=== PATIENT | male | born 1940 | race Caucasian/White ===

== ENCOUNTER → 2016-09-20 | Outpatient (CLI) | payer MEDICARE, BC ==
[2015-07-18 15:00] VITALS: BP 152/76
[~2016-09-20] MED LIST: ALLO300T PO; ALPR0.25 PO; AMLO2.5T PO; AMLO5TAB2 PO; ASPI-482 PO; ASPI325T4 PO; DILT180C2 PO; GARL10002 PO; LIPITOR80 MG PO; LISI2.5T PO; METO25TA4 PO; NITR1PAT3 TD; OMEG500C PO; PANT40TA5 PO; TAMS0.4C2 PO; VALS1TAB14 PO; WARF5TAB7 PO
--- NOTE | 2016-09-20 15:01 | CARD ---
APPROVED REPORT EXAM: Two-dimensional and M-mode echocardiogram with Doppler and color Doppler. Other Information Quality : Average Rhythm : NSR INDICATION Cardiac Disease: CAD 2D DIMENSIONS RVDd3.0 (2.9-3.5cm)Left Atrium(2D)4.7 (1.6-4.0cm) IVSd1.2 (0.7-1.1cm)Aortic Root(2D)3.0 (2.0-3.7cm) LVDd4.7 (3.9-5.9cm)LVOT Diameter2.0 (1.8-2.4cm) PWd1.2 (0.7-1.1cm)LVDs2.8 (2.5-4.0cm) FS (%) 41.2 %SV74.9 ml LVEF(%)72.0 (>50%) Aortic Valve AoV Peak Benjamin.133.8cm/sAoV VTI26.6cm AO Peak GR.7.2mmHgLVOT Peak Benjamin.107.1cm/s LVOT VTI 23.63cmAO Mean GR.4mmHg DAVID (VMAX)2.91ii3FXV (VTI)2.78cm2 AI P 1/2 Fvau442dq Mitral Valve MV E Hnuxnych36.7cm/sMV DECEL BOOG484bh MV A Banpfffl15.3cm/sMV E Mean Gr.1mmHg MV QQA99woP/A Ratio1.0 MV A Dhudbaol469rmOFY (PHT)3.03cm2 TDI E/Lateral E'7.8E/Medial E'7.2 Pulmonary Valve PV Peak Sbtlnrvu89.2cm/sPV Peak Grad.4mmHg RVOT VTI20.2cm Tricuspid Valve TR P. Tfojfiyd336yn/sRAP TQRCWHKJ9fwXt TR Peak Gr.66hhXtDVJS01ffCf Pulmonary Vein S1 Ujtfcigs85.5cm/sD2 Zllvonev46.0cm/s LEFT VENTRICLE The left ventricle is normal size. There is borderline concentric left ventricular hypertrophy. Left ventricle systolic function is normal. The Ejection Fraction is 65-70%. There is normal LV segmental wall motion. The left ventricular diastolic function and filling is normal for age. RIGHT VENTRICLE The right ventricle is normal size. The right ventricular systolic function is normal. ATRIA The left atrium is mildly dilated. The right atrium size is normal. The interatrial septum is intact with no evidence for an atrial septal defect or patent foramen ovale as noted on 2-D or Doppler imagi ng. AORTIC VALVE The aortic valve is mildly sclerotic. The aortic valve is trileaflet. Doppler and Color Flow revealed trace to mild aortic regurgitation. There is no significant aortic valvular stenosis. MITRAL VALVE The mitral valve leaflets are mildly calcified and thickened. There is no mitral valve stenosis. Dopp ler and Color Flow revealed mild mitral regurgitation. TRICUSPID VALVE The tricuspid valve is not well visualized. Doppler and Color Flow revealed mild tricuspid regurgitat ion. The PA pressure was estimated at 25 mmHg. There is no tricuspid valve stenosis. PULMONIC VALVE The pulmonic valve is not well visualized. Doppler and Color Flow revealed no pulmonic valvular regur gitation. There is no pulmonic valvular stenosis. GREAT VESSELS The aortic root is normal in size. Normal pulmonary venous flow (Doppler). The IVC is normal in size and collapses >50% with inspiration. PERICARDIAL EFFUSION There is no evidence of significant pericardial effusion. Critical Notification Critical Value: No <Conclusion> Left ventricle systolic function is normal. The Ejection Fraction is 65-70%. There is normal LV segmental wall motion. The left atrium is mildly dilated. Trace to mild aortic regurgitation. Mild mitral regurgitation. Mild tricuspid regurgitation. The PA pressure was estimated at 25 mmHg. There is no evidence of significant pericardial effusion.
== END | disposition home or self-care (01) ==
LOC: ECHO 12:51
PROVIDERS: ATTEND Internal Medicine Cardiovascular Disease
DX: I25.10 Atherosclerotic heart disease of native coronary artery without angina pectoris (principal); I51.7 Cardiomegaly; I35.1 Nonrheumatic aortic (valve) insufficiency; I34.0 Nonrheumatic mitral (valve) insufficiency
CPT/HCPCS: 93306

== ENCOUNTER → 2018-01-16 | Outpatient (CLI) | payer MEDICARE, BC | END | disposition home or self-care (01) | LOC: ECHO 10:10 | DX: I08.1 Rheumatic disorders of both mitral and tricuspid valves (principal); I25.10 Atherosclerotic heart disease of native coronary artery without angina pectoris; R60.0 Localized edema; I10 Essential (primary) hypertension; E78.5 Hyperlipidemia, unspecified | CPT/HCPCS: 93306; 93970 ==

== ENCOUNTER 2018-08-21 08:48 | Observation (INO) | payer MEDICARE, BC ==
[~2018-08-21] VITALS: Ht 165.1 cm; Wt 104.3 kg
[~2018-08-21 08:48] MED LIST changes: -AMLO2.5T PO; +AMLO2.5T5 PO; +AMLO5TAB10 PO; -AMLO5TAB2 PO; -ASPI325T4 PO; +ASPI325T8 PO; +WARF-31 PO; -WARF5TAB7 PO
[2018-08-21] MEDS ORDERED: ASPIRIN 325 MG TABLET PO ONE (09:00)
[2018-08-21] MEDS ORDERED: NITROGLYCERIN SUBLINGUAL 0.4 MG BOTTLE OF 25. SL PRN ×2 (09:00→11:30)
--- NOTE | 2018-08-21 09:15 | PHYS DOC ---
Past Medical History Past Medical History: [place] Past Surgical History: Cholecystectomy, Other Additional Past Surgical Histo: Cardiac stent x 2, Cardiac cath x 13 Alcohol Use: None Drug Use: None Adult General Chief Complaint Chief Complaint: CHEST PAIN HPI HPI Patient is a 78 year old male who presented to ER today for evaluation of substernal chest pain. Patient described the pain as heaviness. Patient has had this pain off and on since May of last year. Patient said he had some congestion and nonproductive cough 2 weeks ago but he is getting better. He denies any fever. Patient woke up this morning, having the pressure and heaviness in his chest again SO HE came in here for evaluation. Review of Systems Review of Systems Constitutional: Denies fever or chills [] Eyes: Denies change in visual acuity, redness, or eye pain [] HENT: Denies nasal congestion or sore throat [] Respiratory: Denies cough or shortness of breath [] Cardiovascular: No additional information not addressed in HPI [] GI: Denies abdominal pain, nausea, vomiting, bloody stools or diarrhea [] : Denies dysuria or hematuria [] Musculoskeletal: Denies back pain or joint pain [] Integument: Denies rash or skin lesions [] Neurologic: Denies headache, focal weakness or sensory changes [] Endocrine: Denies polyuria or polydipsia [] All other systems were reviewed and found to be within normal limits, except as documented in this note. Current Medications Current Medications Current Medications Medications (Trade) Dose Ordered Sig/Luz Elena Start Time Stop Time Status Last Admin Dose Admin Aspirin (Eunice Aspirin) 325 mg 1X ONCE 08/21/18 09:00 08/21/18 09:01 DC 08/21/18 09:31 325 MG Nitroglycerin (Nitrostat) 0.4 mg PRN Q5MIN PRN 08/21/18 11:30 08/22/18 11:29 UNV Ondansetron HCl (Zofran) 4 mg PRN Q8HRS PRN 08/21/18 11:30 08/22/18 11:29 UNV Allergies Allergies Allergies Coded Allergies Type Severity Reaction Last Updated Verified metronidazole Allergy Severe Palpitations 11/20/13 Yes Penicillins Allergy Intermediate Rash 11/20/13 Yes Physical Exam Physical Exam Constitutional: Well developed, well nourished, no acute distress, non-toxic appearance. [] HENT: Normocephalic, atraumatic, bilateral external ears normal, oropharynx moist, no oral exudates, nose normal. [] Eyes: PERRLA, EOMI, conjunctiva normal, no discharge. [] Neck: Normal range of motion, no tenderness, supple, no stridor. [] Cardiovascular:Heart rate regular rhythm, no murmur [] Lungs & Thorax: Bilateral breath sounds clear to auscultation [] Abdomen: Bowel sounds normal, soft, no tenderness, no masses, no pulsatile masses. [] Skin: Warm, dry, no erythema, no rash. [] Back: No tenderness, no CVA tenderness. [] Extremities: No tenderness, no cyanosis, no clubbing, ROM intact. Bilateral lower extremities pitting edema, 4 plus. Neurologic: Alert and oriented X 3, normal motor function, normal sensory function, no focal deficits noted. [] Psychologic: Affect normal, judgement normal, mood normal. [] Current Patient Data Vital Signs Vital Signs Date Time Temp Pulse Resp B/P (MAP) Pulse Ox O2 Delivery O2 Flow Rate FiO2 08/21/18 10:49 56 15 124/59 (80) 97 Room Air 08/21/18 08:52 98.1 98.1 Lab Values Laboratory Tests Test 08/21/18 08:15 08/21/18 10:20 White Blood Count 6.0 x10^3/uL (4.0-11.0) Red Blood Count 4.30 x10^6/uL (4.30-5.70) Hemoglobin 11.2 g/dL (13.0-17.5) L Hematocrit 34.5 % (39.0-53.0) L Mean Corpuscular Volume 80 fL (79-100) Mean Corpuscular Hemoglobin 26 pg (25-35) Mean Corpuscular Hemoglobin Concent 33 g/dL (31-37) Red Cell Distribution Width 17.1 % (11.5-14.5) H Platelet Count 245 x10^3/uL (140-400) Neutrophils (%) (Auto) 68 % (31-73) Lymphocytes (%) (Auto) 18 % (24-48) L Monocytes (%) (Auto) 10 % (0-9) H Eosinophils (%) (Auto) 3 % (0-3) Basophils (%) (Auto) 1 % (0-3) Neutrophils # (Auto) 4.1 x10^3uL (1.8-7.7) Lymphocytes # (Auto) 1.1 x10^3/uL (1.0-4.8) Monocytes # (Auto) 0.6 x10^3/uL (0.0-1.1) Eosinophils # (Auto) 0.2 x10^3/uL (0.0-0.7) Basophils # (Auto) 0.0 x10^3/uL (0.0-0.2) Prothrombin Time 12.3 SEC (11.7-14.0) Prothrombin Time INR 0.9 (0.8-1.1) PTT 25 SEC (24-38) Sodium Level 144 mmol/L (136-145) Potassium Level 4.2 mmol/L (3.5-5.1) Chloride Level 105 mmol/L (98-107) Carbon Dioxide Level 28 mmol/L (21-32) Anion Gap 11 (6-14) Blood Urea Nitrogen 16 mg/dL (8-26) Creatinine 0.9 mg/dL (0.7-1.3) Estimated GFR (Cockcroft-Gault) 81.6 BUN/Creatinine Ratio 18 (6-20) Glucose Level 101 mg/dL (70-99) H Calcium Level 9.3 mg/dL (8.5-10.1) Magnesium Level 2.2 mg/dL (1.8-2.4) Total Bilirubin 0.5 mg/dL (0.2-1.0) Aspartate Amino Transferase (AST) 19 U/L (15-37) Alanine Aminotransferase (ALT) 23 U/L (16-63) Alkaline Phosphatase 89 U/L (46-116) Creatine Kinase 61 U/L (39-308) Creatine Kinase MB (Mass) 1.5 ng/mL (0.0-3.6) Creatine Kinase MB Relative Index % (0-4) Troponin I Quantitative < 0.017 ng/mL (0.000-0.055) RH-Azv-U-Type Natriuretic Peptide 236 pg/mL (0-449) Total Protein 6.6 g/dL (6.4-8.2) Albumin 3.3 g/dL (3.4-5.0) L Albumin/Globulin Ratio 1.0 (1.0-1.7) Laboratory Tests 08/21/18 08:15 Laboratory Tests 08/21/18 10:20 EKG EKG EKG was read by this physician at 0855, rate of 64 BPM, sinus rhythm, incomplete RBBB, NO STEMI. Radiology/Procedures Radiology/Procedures [][facility] [address] [place] [address] IMAGING REPORT Signed PATIENT: SHOLA MERAZ ACCOUNT: [id number] : 1940 LOCATION: ER AGE: 78 SEX: M EXAM STATUS: PRE ER ORD. PHYSICIAN: ARMANI SAEED DO REASON: CHEST PAIN PROCEDURE: PORTABLE CHEST 1V EXAM: AP View of the chest DATE: 08/21/2018 8:50 AM INDICATION: CHEST PAIN COMPARISON: 09/06/2015 FINDINGS: The heart is not enlarged. Aortic calcifications are seen. No focal parenchymal airspace opacity. Mild emphysematous changes are seen. No pleural effusion or pneumothorax. IMPRESSION: 1. No radiographic evidence for acute cardiopulmonary process. Electronically signed by: Tonny Rowell MD (08/21/2018 9:24 AM) [id number] DICTATED and SIGNED BY: TONNY ROWELL MD DATE: 08/21/18919 Course & Med Decision Making Course & Med Decision Making Pertinent Labs and Imaging studies reviewed. (See chart for details) [] Dragon Disclaimer Dragon Disclaimer This electronic medical record was generated, in whole or in part, using a voice recognition dictation system. Departure Departure Impression: Primary Impression: Chest pain Disposition: ADMITTED INPATIENT Admitting Physician: Murray Goldsmith Condition: IMPROVED Referrals: BETZY ARMENDARIZ MD (PCP) ARMANI SAEED DO Aug 21, 2018 09:14
--- NOTE | 2018-08-21 09:27 | RAD ---
EXAM: AP View of the chest DATE: 08/21/2018 8:50 AM INDICATION: CHEST PAIN COMPARISON: 09/06/2015 FINDINGS: The heart is not enlarged. Aortic calcifications are seen. No focal parenchymal airspace opacity. Mild emphysematous changes are seen. No pleural effusion or pneumothorax. IMPRESSION: 1. No radiographic evidence for acute cardiopulmonary process. Electronically signed by: Tonny Ernst MD (08/21/2018 9:24 AM) [id number]
[2018-08-21 09:31] LABS: BASO % 1 % (0-3); EOS # 0.2 x10^3/uL (0.0-0.7); EOS % 3 % (0-3); HEMATOCRIT 34.5 % (39.0-53.0); HEMOGLOBIN 11.2 g/dL (13.0-17.5); LYMPH # 1.1 x10^3/uL (1.0-4.8); LYMPH % 18 % (24-48); MEAN CORPUSCULAR HEMOGLOBIN 26 pg (25-35); MEAN CORPUSCULAR HGB CONC 33 g/dL (31-37); MEAN CORPUSCULAR VOLUME 80 fL (79-100); MONO # 0.6 x10^3/uL (0.0-1.1); MONO % 10 % (0-9); NEUT # 4.1 x10^3uL (1.8-7.7); NEUT % 68 % (31-73); PLATELET COUNT 245 x10^3/uL (140-400); RED CELL DISTRIBUTION WIDTH 17.1 % (11.5-14.5)
[2018-08-21 09:46] LABS: PROTHROMBIN TIME PATIENT 12.3 SEC (11.7-14.0)
[2018-08-21] MEDS ORDERED: PANT20TA2 PO (10:05)
[2018-08-21] MEDS ORDERED: OMEG1CAP27 PO (10:05)
[2018-08-21] MEDS ORDERED: AMLO5TAB4 PO (10:05)
[2018-08-21] MEDS ORDERED: NITR0.4T22 SL (10:05)
[2018-08-21] MEDS ORDERED: ASPI-630 PO (10:05)
[2018-08-21 10:50] LABS: ALBUMIN 3.3 g/dL (3.4-5.0); CALCIUM 9.3 mg/dL (8.5-10.1); CREATININE 0.9 mg/dL (0.7-1.3); GFR 81.6; MAGNESIUM 2.2 mg/dL (1.8-2.4); POTASSIUM 4.2 mmol/L (3.5-5.1); TOTAL BILIRUBIN 0.5 mg/dL (0.2-1.0); TOTAL PROTEIN 6.6 g/dL (6.4-8.2)
--- NOTE | 2018-08-21 11:00 | EKG ---
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
[2018-08-21 11:01] LABS: CREATINE KINASE 61 U/L (39-308)
[2018-08-21] MEDS ORDERED: ONDANSETRON PF 4 MG/2 ML VIAL. IV PRN (11:30)
--- NOTE | 2018-08-21 12:45 | HP ---
ADMIT DATE: 08/21/2018 CHIEF COMPLAINT: Chest pain. HISTORY OF PRESENT ILLNESS: The patient is a pleasant 78-year-old male who presented to the ER with chest pain, rates it 12/25. He has associated anxiety, it has been occurring for several days. He tried taking some home meds, he described it as agonizing. I discussed the case with ER physician. We are going to admit the patient and consult Cardiology. PAST MEDICAL HISTORY: Myocardial infarction; cholecystectomy; cardiac stents x 2; cardiac catheterization, supposedly x 13 ? ALLERGIES: PENICILLIN and METRONIDAZOLE. FAMILY HISTORY: Coronary artery disease. SOCIAL HISTORY: He does not drink, smoke or take drugs. He is retired. MEDICATIONS: Reviewed, please refer to the MRAD. He is on 11 including atorvastatin, omega-3 fish oil, nitroglycerin, metoprolol, Norvasc, Cardizem, Diovan, aspirin, Protonix, allopurinol. REVIEW OF SYSTEMS: GENERAL: No history of weight change, weakness or fevers. SKIN: No bruising, hair changes or rashes. EYES: No blurred, double or loss of vision. NOSE AND THROAT: No history of nosebleeds, hoarseness or sore throat. HEART: He complains of chest pain. LUNGS: Denies cough, hemoptysis, wheezing or shortness of breath. GASTROINTESTINAL: Denies changes in appetite, nausea, vomiting, diarrhea or constipation. GENITOURINARY: No history of frequency, urgency, hesitancy or nocturia. NEUROLOGIC: Denies history of numbness, tingling, tremor or weakness. PSYCHIATRIC: No history of panic, anxiety or depression. ENDOCRINE: No history of heat or cold intolerance, polyuria or polydipsia. EXTREMITIES: Denies muscle weakness, joint pain, pain on walking or stiffness. PHYSICAL EXAMINATION: VITAL SIGNS: Temperature 98, pulse 80, respirations 18, blood pressure 102/51. GENERAL: He is alert, cooperative. HEART: Normal S1, S2. LUNGS: Clear. ABDOMEN: Soft. EXTREMITIES: No edema. SKIN: No rash. ENDOCRINE: No thyromegaly. LYMPHATICS: No cervical nodes. HEMATOPOIETIC: No bruising. PSYCHIATRIC: He is stable. LABORATORY DATA: Hematology is normal other than hemoglobin of 11.2. Electrolytes are normal. Troponin 0. INR is 0.9. EKG shows sinus rhythm. Chest x-ray is negative. ASSESSMENT AND PLAN: Chest pain, rule out recurrent coronary artery disease. The patient has been admitted. We will check serial enzymes, serial EKGs. Consult Cardiology, cardiac monitoring, home meds, full code. PT, OT, DVT prophylaxis, p.r.n. morphine. PROGNOSIS: Guarded. CESARL Joe SHARMA DO DR: AARON/dallin JOB#: [id number] / [id number]
--- NOTE | 2018-08-21 14:30 | NUR ---
Patient admitted to 211. Patient is not reporting any pain at this time. Sitting comfortably in the recliner. Patient fed and has call light within reach. Patient given walker and encouraged to call when in need of assistance. Will continue to monitor.
[2018-08-21 14:53] LABS: CHOLESTEROL/HDL RATIO 3.1
[2018-08-21 14:55] VITALS: BP 134/59
--- NOTE | 2018-08-21 15:00 | PDOC2 ---
LESLEE CERON COMBINER 08/21/18 1500: CARDIAC CONSULT DATE OF CONSULT Date of Consult DATE: 08/21/18 TIME: 14:42 REASON FOR CONSULT Reason for Consult: Chest pain REFERRING PHYSICIAN Referring Physician: Jorge SOURCE Source: Chart review, Patient HISTORY OF PRESENT ILLNESS HISTORY OF PRESENT ILLNESS This is a pleasant 78 yo male admitted for complains of chest pain. He has been having midchest tightness since May and only lasting about <5 minutes. This occurrs with rest and with activity. He actually uses stairs to go to the basement and no FREEMAN nor CP and this was about 2 days ago. In the last week he has had 4 episodes of chest tightness but resolves <5 minutes. He has not been using his PRN NTG. This morning he was having mid chest tightness and this time it lasted about an hour and occurred while at rest. Also with brief episode of SOA and nausea. He also has been having intermittent but very brief jaw tightness. In addition he feels palpitations sometimes and dizziness. Not associated with vertigo. Denies recent injury but did fall few weeks ago due to ice and no trauma. He has been compliant with his medications and there has been no changes with his meds. For the most part his HR and BP have been good in his written records. He does have GERD but he continuous to take protonix. PAST MEDICAL HISTORY Past Medical History Cardiovascular: CAD, HTN, Hyperlipidemia CENTRAL NERVOUS SYSTEM: Other (No pertinent history) GI: GERD, GI bleed, Peptic Ulcer disease Heme/Onc: No pertinent hx Hepatobiliary: No pertinent hx Psych: Depression Musculoskeletal: Osteoarthritis Rheumatologic: No pertinent hx, Gout Infectious disease: No pertinent hx ENT: No pertinent hx Renal/: Benign prostatic enlarg. Endocrine: No pertinent hx Dermatology: No pertinent hx PAST SURGICAL HISTORY Past Surgical History TURP; cardiac cath with stent 2009 and 2010 with total of 13 heart catheterizations, RTHA FAMILY HISTORY Family History Stroke (father:) SOCIAL HISTORY Social History Smoke: No (quit>13 years ago; 30 pk year) ALCOHOL: rare Drugs: None Lives: with Family Domestic Violence: Neg CURRENT MEDICATIONS CURRENT MEDICATIONS Current Medications Medications (Trade) Dose Ordered Sig/Luz Elena Route PRN Reason Start Time Stop Time Status Last Admin Dose Admin Aspirin (Eunice Aspirin) 325 mg 1X ONCE PO 08/21/18 09:00 08/21/18 09:01 DC 08/21/18 09:31 Nitroglycerin (Nitrostat) 0.4 mg PRN Q5MIN PRN SL CP RATING > 1/10 08/21/18 09:00 08/21/18 11:37 DC 08/21/18 09:32 ALLERGIES ALLERGIES: Coded Allergies: metronidazole (Verified Allergy, Severe, Palpitations, 11/20/13) TACHYCARDIA Penicillins (Verified Allergy, Intermediate, Rash, 11/20/13) ROS Review of System 14 point ROS evaluated with pertinent positives noted per HPI PHYSICAL EXAM General: Alert, Oriented X3, Cooperative, No acute distress HEENT: Atraumatic, Mucous membr. moist/pink Lungs: Clear to auscultation, Normal air movement Heart: Regular rate (SR), Normal S1, Normal S2, Other (2/6 systolic murmur to BLESSING border) Abdomen: Soft, No tenderness Extremities: No cyanosis, No edema Skin: No breakdown, No significant lesion Neuro: Normal speech, Sensation intact Psych/Mental Status: Mental status NL, Mood NL MUSCULOSKELETAL: Osteoarthritic changes both hands VITALS VITALS Vital Signs Date Time Temp Pulse Resp B/P (MAP) Pulse Ox O2 Delivery O2 Flow Rate FiO2 08/21/18 13:28 62 20 145/67 (93) 98 Room Air 08/21/18 08:52 98.1 98.1 LABS Lab: Laboratory Tests Test 08/21/18 08:15 08/21/18 10:20 White Blood Count 6.0 x10^3/uL (4.0-11.0) Red Blood Count 4.30 x10^6/uL (4.30-5.70) Hemoglobin 11.2 g/dL (13.0-17.5) Hematocrit 34.5 % (39.0-53.0) Mean Corpuscular Volume 80 fL (79-100) Mean Corpuscular Hemoglobin 26 pg (25-35) Mean Corpuscular Hemoglobin Concent 33 g/dL (31-37) Red Cell Distribution Width 17.1 % (11.5-14.5) Platelet Count 245 x10^3/uL (140-400) Neutrophils (%) (Auto) 68 % (31-73) Lymphocytes (%) (Auto) 18 % (24-48) Monocytes (%) (Auto) 10 % (0-9) Eosinophils (%) (Auto) 3 % (0-3) Basophils (%) (Auto) 1 % (0-3) Neutrophils # (Auto) 4.1 x10^3uL (1.8-7.7) Lymphocytes # (Auto) 1.1 x10^3/uL (1.0-4.8) Monocytes # (Auto) 0.6 x10^3/uL (0.0-1.1) Eosinophils # (Auto) 0.2 x10^3/uL (0.0-0.7) Basophils # (Auto) 0.0 x10^3/uL (0.0-0.2) Prothrombin Time 12.3 SEC (11.7-14.0) Prothromb Time International Ratio 0.9 (0.8-1.1) Activated Partial Thromboplast Time 25 SEC (24-38) Sodium Level 144 mmol/L (136-145) Potassium Level 4.2 mmol/L (3.5-5.1) Chloride Level 105 mmol/L (98-107) Carbon Dioxide Level 28 mmol/L (21-32) Anion Gap 11 (6-14) Blood Urea Nitrogen 16 mg/dL (8-26) Creatinine 0.9 mg/dL (0.7-1.3) Estimated GFR (Cockcroft-Gault) 81.6 BUN/Creatinine Ratio 18 (6-20) Glucose Level 101 mg/dL (70-99) Calcium Level 9.3 mg/dL (8.5-10.1) Magnesium Level 2.2 mg/dL (1.8-2.4) Total Bilirubin 0.5 mg/dL (0.2-1.0) Aspartate Amino Transf (AST/SGOT) 19 U/L (15-37) Alanine Aminotransferase (ALT/SGPT) 23 U/L (16-63) Alkaline Phosphatase 89 U/L (46-116) Creatine Kinase 61 U/L (39-308) Creatine Kinase MB (Mass) 1.5 ng/mL (0.0-3.6) Creatine Kinase MB Relative Index % (0-4) Troponin I Quantitative < 0.017 ng/mL (0.000-0.055) LA-Shv-R-Type Natriuretic Peptide 236 pg/mL (0-449) Total Protein 6.6 g/dL (6.4-8.2) Albumin 3.3 g/dL (3.4-5.0) Albumin/Globulin Ratio 1.0 (1.0-1.7) ECHOCARDIOGRAM ECHOCARDIOGRAM <Conclusion> The left ventricular systolic function is normal. The Ejection Fraction is 65-70%. There is normal LV segmental wall motion. Trace aortic regurgitation. Mild mitral regurgitation. Mild tricuspid regurgitation. There is no evidence of significant pericardial effusion. DATE: 01/16/18 1208 STRESS TEST STRESS TEST Conclusion 1. Mildly abnormal baseline EKG but no EKG evidence of stressed induced ischemia. 2. Nuclear scanning shows no reversible ischemia or infarct. 3. Normal left ventricular systolic function with ejection fraction of greater than 70%. 4. Low risk Lexiscan nuclear stress test. DATE: 03/14/17 1501 ASSESSMENT/PLAN ASSESSMENT/PLAN 1. Chest pain: UA features 2. CAD: stents in the past. 2015 LHC and 2017 MPI as noted above. 3. HTN: controlled 4. HLP 5. Palpitations/dizziness Recommendations 1. Limited TTE, lipids. 2. Ischemic w/u 3. Continue with home regimen. ASA, lipitor. 4. Will consider for outpt event monitor DANIELA ELLIOTT MD 08/21/18 1703: CARDIAC CONSULT ASSESSMENT/PLAN ASSESSMENT/PLAN Patient seen and examined. Agree with WATERPROOF BAG CUTTING MACHINE OPERATOR's assessment and plan. CP with mixed features. [place] ruled out Agree with 2D echo to rule out wall motion abnormalities We will consider ischemic workup with stress test and event monitor to evaluate palpitations as outpatient Thank you for your consultation LESLEE CERON APRN Aug 21, 2018 15:00 DANIELA ELLIOTT MD Aug 21, 2018 17:03
[2018-08-21 19:00] VITALS: BP 141/58
[2018-08-21] MEDS: METOPROLOL TART IMMED RELEASE 25 MG TABLET. PO SCH (20:16)
[2018-08-21] MEDS ORDERED: ATORVASTATIN CALCIUM 40 MG TABLET. PO SCH (21:00)
[2018-08-21 22:09] VITALS: BP 151/75
[2018-08-22 03:00] VITALS: BP 141/66
[2018-08-22 07:00] VITALS: BP 141/72
[2018-08-22] MEDS ORDERED: PANTOPRAZOLE 40 MG TABLET.DR. PO SCH (07:30)
--- NOTE | 2018-08-22 08:18 | CARD ---
MR#: [id number] Date of Study: 08/21/2018 Ordering Physician: LESLEE CERON, Referring Physician: Hardik CHAUDHARY: Nida Martin APPROVED REPORT EXAM: Two-dimensional and M-mode echocardiogram with Doppler and color Doppler. Other Information Quality : AverageHR: 58bpm Technically limited study due to body habitus. INDICATION CAD Chest Pain RISK FACTORS Hypertension Hyperlipidemia 2D DIMENSIONS RVDd3.0 (2.9-3.5cm)Left Atrium(2D)3.9 (1.6-4.0cm) IVSd1.3 (0.7-1.1cm)Aortic Root(2D)2.9 (2.0-3.7cm) LVDd4.7 (3.9-5.9cm)LVOT Diameter2.2 (1.8-2.4cm) PWd1.2 (0.7-1.1cm)LVDs2.5 (2.5-4.0cm) FS (%) 47.4 %SV79.8 ml LVEF(%)78.8 (>50%) LEFT VENTRICLE The left ventricle is normal size. There is mild to moderate concentric left ventricular hypertrophy. The left ventricular systolic function is normal. The ejection fraction is estimated at 65-70%. Ther e is normal LV segmental wall motion. RIGHT VENTRICLE The right ventricle is normal size. There is normal right ventricular wall thickness. The right ventr icular systolic function is normal. ATRIA The left atrium is borderline dilated. The right atrium is mildly dilated. The interatrial septum is intact with no evidence for an atrial septal defect or patent foramen ovale as noted on 2-D or Dopple r imaging. AORTIC VALVE The aortic valve is thickened but opens well. Doppler and Color Flow revealed trace aortic regurgitat ion. There is no significant aortic valvular stenosis. MITRAL VALVE The mitral valve is normal in structure and function. There is no evidence of mitral valve prolapse. There is no mitral valve stenosis. Doppler and Color Flow revealed trace mitral valve regurgitation. TRICUSPID VALVE The tricuspid valve is normal in structure and function. Doppler and Color Flow revealed mild tricusp id regurgitation. There is no tricuspid valve stenosis. PULMONIC VALVE The pulmonic valve is not well visualized. Doppler and Color Flow revealed no pulmonic valvular regur gitation. GREAT VESSELS The aortic root is normal in size. The IVC was not visualized. PERICARDIAL EFFUSION There is no evidence of significant pericardial effusion. Critical Notification Critical Value: No <Conclusion> The left ventricular systolic function is normal. The ejection fraction is estimated at 65-70%. There is normal LV segmental wall motion. Trace aortic regurgitation. Trace mitral valve regurgitation. Mild tricuspid regurgitation. There is no evidence of significant pericardial effusion. Signed by : Santos Olmedo, Electronically Approved : 08/22/2018 08:17:36
[2018-08-22] MEDS: METOPROLOL TART IMMED RELEASE 25 MG TABLET. PO SCH (08:21)
[2018-08-22] MEDS ORDERED: ALLOPURINOL 300 MG TABLET. PO SCH (09:00)
[2018-08-22] MEDS ORDERED: HYDROCHLOROTHIAZIDE PO SCH (09:00)
[2018-08-22] MEDS ORDERED: VALSARTAN PO SCH (09:00)
[2018-08-22] MEDS ORDERED: amLODIPine BESYLATE 5 MG TABLET PO SCH (09:00)
[2018-08-22] MEDS ORDERED: hydroCHLOROthiazide 25 MG TABLET PO SCH (09:00)
[2018-08-22] MEDS ORDERED: OMEGA-3 FATTY ACIDS/FISH OIL 1,000 MG CAPSULE. PO SCH (09:00)
[2018-08-22] MEDS ORDERED: LOSARTAN POTASSIUM 50 MG TABLET. PO SCH (09:00)
--- NOTE | 2018-08-22 10:02 | PDOC ---
PROGRESS NOTES Chief Complaint Chief Complaint Chest Pain Anxiety CAD H/o MS with stents x2, cath x13 Elevated BP Low Hgb/Hct History of Present Illness History of Present Illness Mr Sr is a 78 yo M with known history of CAD, admitted for CP He was seen and examined this AM, in NAD, resting comfortably in bed Pt denied complaints today He reports having a normal echo yesterday and discussing his case with cardiology Discussed with RN Vitals Vitals Vital Signs Date Time Temp Pulse Resp B/P (MAP) Pulse Ox O2 Delivery O2 Flow Rate FiO2 08/22/18 08:21 65 141/72 08/22/18 07:00 97.4 20 98 Room Air 97.4 Physical Exam General: Alert, Oriented X3, Cooperative, No acute distress Heart: Regular rate (SR), Normal S1, Normal S2, Other (2/6 systolic murmur to BLESSING border) Lungs: Clear Abdomen: Soft, No tenderness Extremities: No cyanosis, No edema Skin: No breakdown, No significant lesion Labs LABS Laboratory Tests Test 08/21/18 10:20 08/22/18 08:35 Sodium Level 144 mmol/L (136-145) Potassium Level 4.2 mmol/L (3.5-5.1) Chloride Level 105 mmol/L (98-107) Carbon Dioxide Level 28 mmol/L (21-32) Anion Gap 11 (6-14) Blood Urea Nitrogen 16 mg/dL (8-26) Creatinine 0.9 mg/dL (0.7-1.3) Estimated GFR (Cockcroft-Gault) 81.6 BUN/Creatinine Ratio 18 (6-20) Glucose Level 101 mg/dL (70-99) Calcium Level 9.3 mg/dL (8.5-10.1) Magnesium Level 2.2 mg/dL (1.8-2.4) Total Bilirubin 0.5 mg/dL (0.2-1.0) Aspartate Amino Transf (AST/SGOT) 19 U/L (15-37) Alanine Aminotransferase (ALT/SGPT) 23 U/L (16-63) Alkaline Phosphatase 89 U/L (46-116) Creatine Kinase 61 U/L (39-308) Creatine Kinase MB (Mass) 1.5 ng/mL (0.0-3.6) Creatine Kinase MB Relative Index % (0-4) Troponin I Quantitative < 0.017 ng/mL (0.000-0.055) < 0.017 ng/mL (0.000-0.055) FQ-Bft-A-Type Natriuretic Peptide 236 pg/mL (0-449) Total Protein 6.6 g/dL (6.4-8.2) Albumin 3.3 g/dL (3.4-5.0) Albumin/Globulin Ratio 1.0 (1.0-1.7) Triglycerides Level 69 mg/dL (0-150) Cholesterol Level 113 mg/dL (0-200) LDL Cholesterol, Calculated 63 mg/dL (0-100) VLDL Cholesterol, Calculated 14 mg/dL (0-40) Non-HDL Cholesterol Calculated 77 mg/dL (0-129) HDL Cholesterol 36 mg/dL (40-60) Cholesterol/HDL Ratio 3.1 Review of Systems Review of Systems Pt denies CP, SOB, FERNANDEZ, dizziness, n/v Assessment and Plan Assessmemt and Plan Problems Medical Problems: (1) Chest pain Status: Acute Assessment Chest Pain Anxiety CAD H/o MS with stents x2, cath x13 Elevated BP Low Hgb/Hct Plan CP with known coronary disease- if work up today is negative, will likely D/C home Echo done on 08/21- normal LV systolic wall function Trops <0.017 Cont heart monitoring, serial ECGs home meds PT/OT DVT prophylaxis likely D/C today if okay with cardiology Comment Review of Relevant I have reviewed the following items teodoro (where applicable) has been applied. Labs Laboratory Tests Test 08/21/18 08:15 08/21/18 10:20 08/22/18 08:35 White Blood Count 6.0 x10^3/uL (4.0-11.0) Red Blood Count 4.30 x10^6/uL (4.30-5.70) Hemoglobin 11.2 g/dL (13.0-17.5) Hematocrit 34.5 % (39.0-53.0) Mean Corpuscular Volume 80 fL (79-100) Mean Corpuscular Hemoglobin 26 pg (25-35) Mean Corpuscular Hemoglobin Concent 33 g/dL (31-37) Red Cell Distribution Width 17.1 % (11.5-14.5) Platelet Count 245 x10^3/uL (140-400) Neutrophils (%) (Auto) 68 % (31-73) Lymphocytes (%) (Auto) 18 % (24-48) Monocytes (%) (Auto) 10 % (0-9) Eosinophils (%) (Auto) 3 % (0-3) Basophils (%) (Auto) 1 % (0-3) Neutrophils # (Auto) 4.1 x10^3uL (1.8-7.7) Lymphocytes # (Auto) 1.1 x10^3/uL (1.0-4.8) Monocytes # (Auto) 0.6 x10^3/uL (0.0-1.1) Eosinophils # (Auto) 0.2 x10^3/uL (0.0-0.7) Basophils # (Auto) 0.0 x10^3/uL (0.0-0.2) Prothrombin Time 12.3 SEC (11.7-14.0) Prothromb Time International Ratio 0.9 (0.8-1.1) Activated Partial Thromboplast Time 25 SEC (24-38) Sodium Level 144 mmol/L (136-145) Potassium Level 4.2 mmol/L (3.5-5.1) Chloride Level 105 mmol/L (98-107) Carbon Dioxide Level 28 mmol/L (21-32) Anion Gap 11 (6-14) Blood Urea Nitrogen 16 mg/dL (8-26) Creatinine 0.9 mg/dL (0.7-1.3) Estimated GFR (Cockcroft-Gault) 81.6 BUN/Creatinine Ratio 18 (6-20) Glucose Level 101 mg/dL (70-99) Calcium Level 9.3 mg/dL (8.5-10.1) Magnesium Level 2.2 mg/dL (1.8-2.4) Total Bilirubin 0.5 mg/dL (0.2-1.0) Aspartate Amino Transf (AST/SGOT) 19 U/L (15-37) Alanine Aminotransferase (ALT/SGPT) 23 U/L (16-63) Alkaline Phosphatase 89 U/L (46-116) Creatine Kinase 61 U/L (39-308) Creatine Kinase MB (Mass) 1.5 ng/mL (0.0-3.6) Creatine Kinase MB Relative Index % (0-4) Troponin I Quantitative < 0.017 ng/mL (0.000-0.055) < 0.017 ng/mL (0.000-0.055) MO-Dhu-F-Type Natriuretic Peptide 236 pg/mL (0-449) Total Protein 6.6 g/dL (6.4-8.2) Albumin 3.3 g/dL (3.4-5.0) Albumin/Globulin Ratio 1.0 (1.0-1.7) Triglycerides Level 69 mg/dL (0-150) Cholesterol Level 113 mg/dL (0-200) LDL Cholesterol, Calculated 63 mg/dL (0-100) VLDL Cholesterol, Calculated 14 mg/dL (0-40) Non-HDL Cholesterol Calculated 77 mg/dL (0-129) HDL Cholesterol 36 mg/dL (40-60) Cholesterol/HDL Ratio 3.1 Laboratory Tests Test 08/21/18 10:20 08/22/18 08:35 Sodium Level 144 mmol/L (136-145) Potassium Level 4.2 mmol/L (3.5-5.1) Chloride Level 105 mmol/L (98-107) Carbon Dioxide Level 28 mmol/L (21-32) Anion Gap 11 (6-14) Blood Urea Nitrogen 16 mg/dL (8-26) Creatinine 0.9 mg/dL (0.7-1.3) Estimated GFR (Cockcroft-Gault) 81.6 BUN/Creatinine Ratio 18 (6-20) Glucose Level 101 mg/dL (70-99) Calcium Level 9.3 mg/dL (8.5-10.1) Magnesium Level 2.2 mg/dL (1.8-2.4) Total Bilirubin 0.5 mg/dL (0.2-1.0) Aspartate Amino Transf (AST/SGOT) 19 U/L (15-37) Alanine Aminotransferase (ALT/SGPT) 23 U/L (16-63) Alkaline Phosphatase 89 U/L (46-116) Creatine Kinase 61 U/L (39-308) Creatine Kinase MB (Mass) 1.5 ng/mL (0.0-3.6) Creatine Kinase MB Relative Index % (0-4) Troponin I Quantitative < 0.017 ng/mL (0.000-0.055) < 0.017 ng/mL (0.000-0.055) JG-Tam-L-Type Natriuretic Peptide 236 pg/mL (0-449) Total Protein 6.6 g/dL (6.4-8.2) Albumin 3.3 g/dL (3.4-5.0) Albumin/Globulin Ratio 1.0 (1.0-1.7) Triglycerides Level 69 mg/dL (0-150) Cholesterol Level 113 mg/dL (0-200) LDL Cholesterol, Calculated 63 mg/dL (0-100) VLDL Cholesterol, Calculated 14 mg/dL (0-40) Non-HDL Cholesterol Calculated 77 mg/dL (0-129) HDL Cholesterol 36 mg/dL (40-60) Cholesterol/HDL Ratio 3.1 Medications Current Medications Aspirin (NumberFour Aspirin) 325 mg 1X ONCE PO Last administered on 08/21/18 09:31 ; Start 08/21/18 at 09:00; Stop 08/21/18 at 09:01; Status DC Nitroglycerin (Nitrostat) 0.4 mg PRN Q5MIN PRN SL CP RATING > 1/10 Last administered on 08/21/18at 09:32; Start 08/21/18 at 09:00; Stop 08/21/18 at 11:37; Status DC Ondansetron HCl (Zofran) 4 mg PRN Q8HRS PRN IV NAUSEA/VOMITING; Start 08/21/18 at 11:30; Stop 08/22/18 at 11:29 Nitroglycerin (Nitrostat) 0.4 mg PRN Q5MIN PRN SL CHEST PAIN; Start 08/21/18 at 11:30; Stop 08/22/18 at 11:29 Allopurinol (Zyloprim) 300 mg DAILY PO Last administered on 08/22/18at 08:20; Start 08/22/18 at 09:00 Amlodipine Besylate (Norvasc) 5 mg DAILY PO Last administered on 08/22/18 08:20 ; Start 08/22/18 at 09:00 Metoprolol Tartrate (Lopressor) 25 mg BID PO Last administered on 08/22/18at 08: 21; Start 08/21/18 at 21:00 Atorvastatin Calcium (Lipitor) 80 mg QHS PO Last administered on 08/21/18at 20:15 ; Start 08/21/18 at 21:00 Fish Oil (Fish Oil) 1,000 mg DAILY PO Last administered on 3/7/19at 08:19; Start 08/22/18 at 09:00 Pantoprazole Sodium (Protonix) 40 mg DAILYAC PO Last administered on 08/22/18at 08:17; Start 08/22/18 at 07:30 Non-Formulary Medication (Valsartan/ Hydrochlorothiazide (Diovan Hct 160-25 Mg Tablet)) 1 each DAILY PO ; Start 08/22/18 at 09:00; Status UNV Losartan Potassium (Cozaar) 100 mg DAILY PO ; Start 08/22/18 at 09:00 Hydrochlorothiazide (Hydrodiuril) 25 mg DAILY PO ; Start 08/22/18 at 09:00 Active Scripts Active Reported Fish Oil 1,000 Mg Softgel ([employer]-3 Fatty Acids/Fish Oil) 1 Each Capsule 1 Each PO DAILY Norvasc (Amlodipine Besylate) 5 Mg Tablet 1 Tab PO DAILY Protonix (Pantoprazole Sodium) 20 Mg Tablet.dr 40 Mg PO DAILY Lipitor (Atorvastatin Calcium) 80 Mg Tablet 1 Tab PO DAILY Allopurinol 300 Mg Tablet 300 Mg PO DAILY Diovan Hct 160-25 Mg Tablet (Valsartan/Hydrochlorothiazide) 1 Each Tablet 1 Each PO DAILY Metoprolol Tartrate 25 Mg Tablet 25 Mg PO BID Vitals/I & O Vital Sign - Last 24 Hours 08/21/18 08/21/18 08/21/18 08/21/18 10:49 12:01 13:28 14:30 Pulse 56 58 62 Resp 15 16 20 B/P (MAP) 124/59 (80) 179/72 (107) 145/67 (93) Pulse Ox 97 100 98 O2 Delivery Room Air Room Air Room Air Room Air 08/21/18 08/21/18 08/21/18 08/21/18 14:55 19:00 20:00 20:16 Temp 97.6 97.5 97.6 97.5 Pulse 86 64 64 Resp 18 18 B/P (MAP) 134/59 (84) 141/58 (85) 141/58 Pulse Ox 98 98 O2 Delivery Room Air Room Air Room Air 08/21/18 08/22/18 08/22/18 08/22/18 22:09 03:00 07:00 08:20 Temp 98.2 97.7 97.4 98.2 97.7 97.4 Pulse 57 65 64 65 Resp 18 17 20 B/P (MAP) 151/75 (100) 141/66 (91) 141/72 (95) 141/72 Pulse Ox 98 97 98 O2 Delivery Room Air Room Air Room Air 08/22/18 08:21 Pulse 65 B/P (MAP) 141/72 Intake and Output 08/21/18 08/21/18 08/22/18 14:59 22:59 06:59 Intake Total 200 ml Balance 200 ml RUDDY SHARMA III DO Aug 22, 2018 10:02
[2018-08-22 11:00] VITALS: BP 138/64
--- NOTE | 2018-08-22 16:15 | DS ---
DATE OF DISCHARGE: 08/22/2018 ADMISSION DIAGNOSIS: Chest pain. DISCHARGE DIAGNOSIS: Resolving chest pain. CONSULTS: Cardiology. PROCEDURES: None. HOSPITAL COURSE: The patient is a pleasant 78-year-old male who had previous coronary artery disease. He has had 13 cardiac catheterizations and has a few stents. He basically presented with chest pain. We admitted the patient, checked serial enzymes, serial EKGs. We consulted Cardiology. It was felt that this is probably not cardiac at this time, but he wanted to do an outpatient workup. We plan to discharge. DISPOSITION: Home. ACTIVITY: As tolerated. DIET: Low sodium. MEDICATIONS: Please see the MRAD. TOTAL TIME: 34 minutes. RUDDY SHARMA DO DR: AARON/dallin JOB#: [id number] / [id number]
--- NOTE | 2018-08-22 16:33 | PDOC ---
PROGRESS NOTES Subjective Subjective Denied any further CP Objective Objective Vital Signs Date Time Temp Pulse Resp B/P (MAP) Pulse Ox O2 Delivery O2 Flow Rate FiO2 08/22/18 11:00 98.4 63 18 138/64 (88) 98 Room Air 98.4 Intake and Output 08/22/18 07:00 Intake Total 200 ml Balance 200 ml Intake Oral 200 ml # Voids 5 Physical Exam Abdomen: Soft, No tenderness Heart: Regular rate (SR), Normal S1, Normal S2, Other (2/6 systolic murmur to BLESSING border) Extremities: No cyanosis, No edema General: Alert, Oriented X3, Cooperative, No acute distress HEENT: Atraumatic, Mucous membr. moist/pink Lungs: Clear to auscultation, Normal air movement MUSCULOSKELETAL: Osteoarthritic changes both hands Neuro: Normal speech, Sensation intact Psych/Mental Status: Mental status NL, Mood NL Skin: No breakdown, No significant lesion Assessment Assessment 1. Chest pain in a patient with known history of CAD: CA ruled out. 2D echo showed normal LVF without any WMA. Plan ischemic eval as outpatient 3. HTN: controlled 4. HLP: statins 5. Palpitations/dizziness: event monitor as outpatient Plan Plan of Care Problems Medical Problems: (1) Chest pain Status: Acute Comment Review of Relevant I have reviewed the following items teodoro (where applicable) has been applied. Labs Laboratory Tests Test 08/22/18 08:35 Troponin I Quantitative < 0.017 ng/mL (0.000-0.055) Medications Current Medications Allopurinol (Zyloprim) 300 mg DAILY PO Last administered on 08/22/18at 08:20; Start 08/22/18 at 09:00 Amlodipine Besylate (Norvasc) 5 mg DAILY PO Last administered on 08/22/18at 08:20 ; Start 08/22/18 at 09:00 Atorvastatin Calcium (Lipitor) 80 mg QHS PO Last administered on 08/21/18at 20:15 ; Start 08/21/18 at 21:00 Fish Oil (Fish Oil) 1,000 mg DAILY PO Last administered on 08/22/18at 08:19; Start 08/22/18 at 09:00 Hydrochlorothiazide (Hydrodiuril) 25 mg DAILY PO ; Start 08/22/18 at 09:00 Losartan Potassium (Cozaar) 100 mg DAILY PO ; Start 08/22/18 at 09:00 Metoprolol Tartrate (Lopressor) 25 mg BID PO Last administered on 08/22/18at 08: 21; Start 08/21/18 at 21:00 Non-Formulary Medication (Valsartan/ Hydrochlorothiazide (Diovan Hct 160-25 Mg Tablet)) 1 each DAILY PO ; Start 08/22/18 at 09:00; Status UNV Pantoprazole Sodium (Protonix) 40 mg DAILYAC PO Last administered on 08/22/18at 08:17; Start 08/22/18 at 07:30 Vitals/I & O Vital Sign - Last 24 Hours 08/21/18 08/21/18 08/21/18 08/21/18 19:00 20:00 20:16 22:09 Temp 97.5 98.2 97.5 98.2 Pulse 64 64 57 Resp 18 18 B/P (MAP) 141/58 (85) 141/58 151/75 (100) Pulse Ox 98 98 O2 Delivery Room Air Room Air Room Air 08/22/18 08/22/18 08/22/18 08/22/18 03:00 07:00 08:20 08:21 Temp 97.7 97.4 97.7 97.4 Pulse 65 64 65 65 Resp 17 20 B/P (MAP) 141/66 (91) 141/72 (95) 141/72 141/72 Pulse Ox 97 98 O2 Delivery Room Air Room Air 08/22/18 11:00 Temp 98.4 98.4 Pulse 63 Resp 18 B/P (MAP) 138/64 (88) Pulse Ox 98 O2 Delivery Room Air Intake and Output 08/21/18 08/21/18 08/22/18 15:00 23:00 07:00 Intake Total 200 ml Balance 200 ml DANIELA ELLIOTT MD Aug 22, 2018 16:33
== END 2018-08-22 17:20 | disposition home or self-care (01) ==
LOC: ER 08:48 → ED HOLD 11:30 → 2 NORTH 14:30
PROVIDERS: ADMIT Internal Medicine; ATTEND Internal Medicine
DX: R07.2 Precordial pain (principal); F41.9 Anxiety disorder, unspecified; I25.2 Old myocardial infarction; I25.10 Atherosclerotic heart disease of native coronary artery without angina pectoris; Z98.890 Other specified postprocedural states; Z82.49 Family history of ischemic heart disease and other diseases of the circulatory system; Z95.5 Presence of coronary angioplasty implant and graft
CPT/HCPCS: 36415; 71045; 80053; 80061; 82553; 83735; 83880; 84484; 85025; 85610; 85730; 93005; 93308; 99284; G0378; G0379

== ENCOUNTER → 2019-10-16 | Outpatient (CLI) | payer MEDICARE, BC ==
[~2019-10-16] MED LIST changes: +AMLO5TAB4 PO; +ASPI-630 PO; +NITR0.4T22 SL; +OMEG1CAP27 PO; +PANT20TA2 PO; -PANT40TA5 PO; +PANT40TA77 PO
--- NOTE | 2019-10-16 15:39 | CARD ---
MR#: [id number] Date of Study: 10/16/2019 Ordering Physician: DANIELA ELLIOTT, Referring Physician: DANIELA ELLIOTT Tech: Stacey Ford RDCS APPROVED REPORT EXAM: Two-dimensional and M-mode echocardiogram with Doppler and color Doppler. Other Information Quality : Good INDICATION Cardiac Disease: CAD 2D DIMENSIONS RVDd3.2 (2.9-3.5cm)Left Atrium(2D)4.4 (1.6-4.0cm) IVSd1.4 (0.7-1.1cm)Aortic Root(2D)2.9 (2.0-3.7cm) LVDd4.6 (3.9-5.9cm)LVOT Diameter2.1 (1.8-2.4cm) PWd1.1 (0.7-1.1cm)LVDs2.1 (2.5-4.0cm) FS (%) 30.0 %SV85.4 ml LVEF(%)60.0 (>50%) Aortic Valve AoV Peak Benjamin.181.2cm/sAoV VTI33.9cm AO Peak GR.13.1mmHgLVOT Peak Benjamin.143.2cm/s AO Mean GR.6mmHgAVA (VMAX)2.82cm2 DAVID (VTI)2.90cm2 Mitral Valve MV E Agqxqcsl464.2cm/sMV DECEL QYQT451um MV A Mxzulmyq83.9cm/sE/A Ratio1.4 Tricuspid Valve TR P. Fghcmdxe473zs/sRAP PQZTHILA1vvTy TR Peak Gr.42ojFfVAZN15oySe Pulmonary Vein S1 Lazxbclp79.0cm/sD2 Wkbzbvua24.3cm/s LEFT VENTRICLE The left ventricle is normal size. There is mild to moderate asymmetric septal hypertrophy. The left ventricular systolic function is normal and the ejection fraction is within normal range. The Ejectio n Fraction is 55-60%. There is normal LV segmental wall motion. Transmitral Doppler flow pattern is G rade II-pseudonormal filling dynamics. RIGHT VENTRICLE The right ventricle is mildly dilated. The right ventricular systolic function is normal. ATRIA The left atrium is mildly dilated. The right atrium is mildly dilated. The interatrial septum is inta ct with no evidence for an atrial septal defect or patent foramen ovale as noted on 2-D or Doppler im aging. AORTIC VALVE The aortic valve is calcified but opens well. Doppler and Color Flow revealed no significant aortic r egurgitation. There is no significant aortic valvular stenosis. MITRAL VALVE The mitral valve is calcified but opens well. Mitral annular calcification is mild. There is no evide nce of mitral valve prolapse. There is no mitral valve stenosis. Doppler and Color-flow revealed mild mitral regurgitation. TRICUSPID VALVE The tricuspid valve is normal in structure and function. Doppler and Color Flow revealed mild tricusp id regurgitation. The PA pressure was estimated at 40 mmHg. There is no tricuspid valve stenosis. PULMONIC VALVE Doppler and Color Flow revealed no pulmonic valvular regurgitation. There is no pulmonic valvular alonzo nosis. GREAT VESSELS The aortic root is normal in size. The ascending aorta is normal in size. The IVC is normal in size a nd collapses >50% with inspiration. PERICARDIAL EFFUSION There is no evidence of significant pericardial effusion. Critical Notification Critical Value: No <Conclusion> The left ventricular systolic function is normal and the ejection fraction is within normal range. Th e Ejection Fraction is 55-60%. There is normal LV segmental wall motion. The right ventricle is mildly dilated. Doppler and Color Flow revealed mild tricuspid regurgitation. The PA pressure was estimated at 40 mmH g. Signed by : Landon Tomlin, Electronically Approved : 10/16/2019 15:39:13
== END | disposition home or self-care (01) ==
LOC: ECHO 14:12
PROVIDERS: ATTEND Internal Medicine Cardiovascular Disease
DX: I08.3 Combined rheumatic disorders of mitral, aortic and tricuspid valves (principal); I25.10 Atherosclerotic heart disease of native coronary artery without angina pectoris
CPT/HCPCS: 93306

== ENCOUNTER → 2019-10-17 | Outpatient (CLI) | payer MEDICARE, BC ==
--- NOTE | 2019-10-17 10:38 | RAD ---
MR#: [id number] Date of Study: 10/17/2019 Ordering Physician: DANIELA ELLIOTT, Referring Physician: DANIELA ELLIOTT, Tech: ROXANNE Ribeiro, RDIL, RVT APPROVED REPORT Patient Location: OUT-PATIENT Indications Rest Pain: CAD VELOCITY AND DOPPLER WAVEFORM ANALYSIS RIGHT cm/secWaveformSeverity LEFT cm/secWaveform Severity pCFA 137.2TriphasicpCFA 130.2Triphasic Prof Fem Art. 90.1Prof Fem Art. 112.5 Fem Art Prox. 114.0BiphasicFem Art Prox. 116.7Triphasic Fem Art Mid. 122.2BiphasicFem Art Mid. 96.7Biphasic Fem Art Dist. 126.8BiphasicFem Art Dist. 67.5Biphasic Pop Art(Fossa) 88.2BiphasicPop Art(AK) 86.1Biphasic M[employer] Dist. 107.0BiphasicPTA Dist. 87.4Biphasic Per Art Dist.51.0BiphasicPer Art Dist.90.6Biphasic DAVID Dist. 58.9BiphasicATA Dist. 99.6Triphasic DPA 155TriphasicDPA 147Triphasic Findings There is moderate bilateral calcific plaquing at the level of the common femoral arteries. No obviou s obstructive lesion is noted on grayscale images. Color Doppler images are grossly unremarkable. Spectral waveforms and velocities are grossly unremar kable. There are mostly triphasic and biphasic waveforms throughout the lower extremity arterial cou rse. No significant abnormalities noted. There is three-vessel runoff below the knee. Critical Notification Critical Value: No <Conclusion> 1. No significant obstructive lower extremity arterial disease noted Signed by : Landon Tomlin, Electronically Approved : 10/17/2019 10:38:11
== END | disposition home or self-care (01) ==
LOC: US 06:41
PROVIDERS: ATTEND Internal Medicine Cardiovascular Disease
DX: I25.10 Atherosclerotic heart disease of native coronary artery without angina pectoris (principal)
CPT/HCPCS: 93925

== ENCOUNTER → 2021-09-14 | Outpatient (CLI) | payer MEDICARE, BC ==
[2021-09-13 11:00] VITALS: BP 158/73
[~2021-09-14] MED LIST changes: +AMLO-186 PO; -AMLO5TAB10 PO; +ASPI325T11 PO; +CLOP75TA PO; -LISI2.5T PO; +LISI2.5T12 PO; +POTA2.5T PO
--- NOTE | 2021-09-14 16:37 | CARD ---
MR#: [id number] Date of Study: 09/14/2021 Ordering Physician: DANIELA ELLIOTT, Referring Physician: DANIELA ELLIOTT Tech: Mattie Perez [facility] APPROVED REPORT EXAM: Two-dimensional and M-mode echocardiogram with Doppler and color Doppler. Other Information Quality : Technically LimitedHR: 52bpm Rhythm : NSRTechnically limited study due to body habitus. INDICATION Dyspnea Chest Pain RISK FACTORS Hypertension Obesity Hyperlipidemia 2D DIMENSIONS Left Atrium(2D)5.6 (1.6-4.0cm)IVSd1.4 (0.7-1.1cm) Aortic Root(2D)3.2 (2.0-3.7cm)LVDd4.5 (3.9-5.9cm) LVOT Diameter2.4 (1.8-2.4cm)PWd1.1 (0.7-1.1cm) LVDs1.6 (2.5-4.0cm)FS (%) 63.2 % SV83.2 mlLVEF(%)91.5 (>50%) Aortic Valve AoV Peak Benjamin.171.9cm/sAoV VTI36.0cm AO Peak GR.11.8mmHgLVOT Peak Benjamin.148.0cm/s AO Mean GR.5mmHgAVA (VMAX)3.77cm2 Mitral Valve MV E Mubzifey074.6cm/sMV DECEL ILUL642xi MV A Mcydqzyq20.7cm/sE/A Ratio1.3 Pulmonary Valve PV Peak Nfuugcbg205.9cm/s Tricuspid Valve TR P. Raepauwu676lf/sTR Peak Gr.30mmHg LEFT VENTRICLE The left ventricle is normal size. There is mild concentric left ventricular hypertrophy. The left ve ntricular systolic function is normal and the ejection fraction is within normal range. Estimated eje ction fraction 60%. There is normal LV segmental wall motion. Transmitral Doppler flow pattern is Gra de I-abnormal relaxation pattern. RIGHT VENTRICLE The right ventricle is borderline dilated. There is normal right ventricular wall thickness. The righ t ventricular systolic function is normal. ATRIA The left atrium size is normal. The right atrium size is normal. The interatrial septum is intact wit h no evidence for an atrial septal defect or patent foramen ovale as noted on 2-D or Doppler imaging. AORTIC VALVE The aortic valve is normal in structure and function. Doppler and Color Flow revealed trace to mild a ortic regurgitation. There is no significant aortic valvular stenosis. MITRAL VALVE The mitral valve is normal in structure and function. There is no evidence of mitral valve prolapse. There is no mitral valve stenosis. Doppler and Color-flow revealed mild mitral regurgitation. TRICUSPID VALVE The tricuspid valve is normal in structure and function. Doppler and Color Flow revealed trace tricus pid regurgitation. Estimated PAP 30 mmHg. There is no tricuspid valve stenosis. PULMONIC VALVE Doppler and Color Flow revealed trace pulmonic valvular regurgitation. There is no pulmonic valvular stenosis. GREAT VESSELS The aortic root is normal in size. The ascending aorta is normal in size. The IVC is normal in size a nd collapses >50% with inspiration. PERICARDIAL EFFUSION There is no evidence of significant pericardial effusion. Critical Notification Critical Value: No <Conclusion> The left ventricular systolic function is normal and the ejection fraction is within normal range. E stimated ejection fraction 60%. There is normal LV segmental wall motion. Signed by : Landon Tomlin, Electronically Approved : 09/14/2021 16:36:30
== END ==
LOC: ECHO 09:10
PROVIDERS: ATTEND Internal Medicine Cardiovascular Disease
DX: I08.0 Rheumatic disorders of both mitral and aortic valves (principal); I25.10 Atherosclerotic heart disease of native coronary artery without angina pectoris
CPT/HCPCS: 93306; C8929